=== PATIENT | female | born 1965 | race Caucasian/White ===

== ENCOUNTER 2019-10-21 07:24 | Day surgery (SDC) | payer BC ==
[~2019-10-21 07:24] MED LIST: Lactated Ringers 1,000 ML IV SCH; Sodium Chloride 0.9% 10 ML Syringe FLUSH PRN
[2019-10-21] MEDS ORDERED: Propofol 200 MG/20 ML SDV ONE (08:30)
[2019-10-21] MEDS ORDERED: fentaNYL 100 MCG/2 ML SDV ONE (08:30)
== END 2019-10-21 10:40 | disposition home or self-care (01) ==
LOC: VM.SDS 07:24
PROVIDERS: ATTEND Surgery
DX: Z12.11 Encounter for screening for malignant neoplasm of colon (principal); D12.3 Benign neoplasm of transverse colon; D12.5 Benign neoplasm of sigmoid colon; K62.1 Rectal polyp; K64.8 Other hemorrhoids; I10 Essential (primary) hypertension; K21.0 Gastro-esophageal reflux disease with esophagitis; E78.49 Other hyperlipidemia; F41.9 Anxiety disorder, unspecified; F17.210 Nicotine dependence, cigarettes, uncomplicated; Z79.82 Long term (current) use of aspirin; Z79.899 Other long term (current) drug therapy; Z88.5 Allergy status to narcotic agent; Z88.8 Allergy status to other drugs, medicaments and biological substances; Z86.010 Personal history of colon polyps; Z80.0 Family history of malignant neoplasm of digestive organs
CPT/HCPCS: J2704; J3010; J7120

== ENCOUNTER 2020-04-13 09:40 | Emergency (ER) | payer BC ==
[2020-04-13] MEDS ORDERED: Sodium Chloride 0.9% 10 ML Syringe FLUSH PRN (09:58)
--- NOTE | 2020-04-13 10:06 | EDM.PDOC ---
ED HPI GENERAL MEDICAL PROBLEM - General Chief Complaint: Headache Stated Complaint: ER Time Seen by Provider: 04/13/20 09:50 Source of Information: Reports: Patient History Limitations: Reports: No Limitations - History of Present Illness INITIAL COMMENTS - FREE TEXT/NARRATIVE: Patient comes emergency department today from the clinic for further evaluation of a rather sudden abrupt thunderclap headache that is worst ever headache and not a normal migraine for her that started at approximately 0800 when she got to work. Feels pounding and pressure behind bilateral eyes. She complains of photophobia and phonophobia. Nausea without vomiting. No recent falls head trauma. No visual disturbances. She does complain of feeling lightheaded. Vertigo. She denies any change in her mentation no confusion. No difficulty with word finding or speech. She does complain of some swelling to her left arm for which she had to take her watch off of for and leg, as well as a "funny sensation" to her left arm. She has had no chest pain or palpitations. No weakness syncope. No abdominal pain. She does complain of nausea without vomiting. She is quite anxious and concerned as this is very different from her typical migraines. She denies any fever or chills. No abdominal pain. No hematuria dysuria or urinary frequency. 28 pack year history of smoking not currently smoking. History of HTN high cholesterol. - Related Data Allergies Allergy/AdvReac Type Severity Reaction Status Date / Time hydrocodone Allergy Anxiety Verified 10/21/19 07:17 varenicline [From Chantix] Allergy Hives Verified 10/21/19 07:17 Home Meds: Home Meds Albuterol Sulfate [Albuterol Sulfate Hfa] 2 puff Q4H PRN 10/21/19 [History] Losartan [Cozaar] 12.5 mg PO DAILY 10/21/19 [History] Simvastatin [Zocor] 40 mg PO BEDTIME 10/21/19 [History] Venlafaxine [Effexor] 25 mg PO DAILY 10/21/19 [History] Past Medical History HEENT History: Reports: Allergic Rhinitis Cardiovascular History: Reports: High Cholesterol, Hypertension Gastrointestinal History: Reports: Colon Polyp, GERD Psychiatric History: Reports: Anxiety - Past Surgical History HEENT Surgical History: Reports: Other (See Below) Other HEENT Surgeries/Procedures: dental surgery GI Surgical History: Reports: Colonoscopy, EGD Female Surgical History: Reports: Hysterectomy, Other (See Below) Other Female Surgeries/Procedures: bladder and rectum [facility] Social & Family History - Tobacco Use Smoking Status *Q: Former Smoker (1 ppd 28 yr history.) ED ROS GENERAL - Review of Systems Review Of Systems: Comprehensive ROS is negative, except as noted in HPI. - Physical Exam Exam: See Below Exam Limited By: No Limitations General Appearance: Alert, WD/WN, No Apparent Distress, Mild Distress Eye Exam: Bilateral Eye: EOMI, PERRL Ears: Normal External Exam, Normal TMs Nose: Normal Inspection, Normal Mucosa Throat/Mouth: Normal Inspection, Normal Lips, Normal Teeth, Normal Gums, Normal Oropharynx, Normal Voice, No Airway Compromise Head Exam: Atraumatic, Normocephalic Neck: Normal Inspection, Supple, Non-Tender, Full Range of Motion Respiratory/Chest: No Respiratory Distress, Lungs Clear, Normal Breath Sounds, No Accessory Muscle Use, Chest Non-Tender Cardiovascular: Normal Peripheral Pulses, Regular Rate, Rhythm, No Edema, No Murmur GI/Abdominal: Normal Bowel Sounds, Soft, Non-Tender (Female) Exam: Deferred Rectal (Female) Exam: Deferred Neuro Exam (Abbreviated): Alert, Oriented, CN II-XII Intact, Normal Cognition, Normal Gait, Normal Reflexes, No Motor/Sensory Deficits, Other (NIH of 2, Slight pronator drift of left arm and drift of left leg almost falls to the bed. No ataxia of upper or lower extremities. Speech is clear and articulate. No difficulty with word findings. ) DTR: 2+: Bicep (R), Bicep (L), Patella (R), Patella (L), Achilles (R), Achilles (L) Back Exam: Normal Inspection, Full Range of Motion Extremities: Normal Inspection, Normal Range of Motion, Non-Tender, Normal Capillary Refill, Pedal Edema (Edema 1+ to the left lower extremity only no calf tenderness. ) Psychiatric: Normal Affect, Normal Mood Skin Exam: Warm, Dry, Intact, Normal Color, No Rash EKG INTERPRETATION EKG Date: 04/13/20 Time: 10:21 Rhythm: NSR Rate (Beats/Min): 73 Hasty: Normal P-Wave: Present QRS: Normal ST-T: Normal QT: Normal Course - Orders/Labs/Meds Orders: Active Orders 24 hr Category Date Time Status EKG Documentation Completion [RC] STAT Care 04/13/20 09:58 Active Peripheral IV Insertion Adult [OM.PC] Stat Oth 04/13/20 09:58 Ordered Labs: Laboratory Tests 04/13/20 04/13/20 04/13/20 Range/Units 10:04 10:04 10:04 WBC 7.6 (4.0-10.0) x10^3/uL RBC 4.83 (4.00-5.50) x10^6/uL Hgb 13.9 (12.0-16.0) g/dL Hct 41.5 (33.0-47.0) % MCV 85.9 (78.0-93.0) fL MCH 28.8 (26.0-32.0) pg MCHC 33.5 (32.0-36.0) g/dL RDW Coeff of Charmaine 12.7 (10.0-15.0) % Plt Count 203 (130-400) x10^3/uL Neut % (Auto) 57.8 (50.0-80.0) % Lymph % (Auto) 30.4 (25.0-50.0) % Levy % (Auto) 10.0 (2.0-11.0) % Eos % (Auto) 1.4 (0.0-4.0) % Baso % (Auto) 0.4 (0.2-1.2) % PT 9.8 (9.5-12.3) SEC INR 0.9 L (2.0-3.5) APTT 29.0 (25.6-32.8) SEC Sodium 142 (136-145) mmol/L Potassium 4.0 (3.5-5.1) mmol/L Chloride 104 (98-107) mmol/L Carbon Dioxide 28 (21-32) mmol/L Anion Gap 14.0 (10-20) mmol/L BUN 11 (7-18) mg/dL Creatinine 0.7 (0.55-1.02) mg/dL Est Cr Clr Drug Dosing TNP Estimated GFR (MDRD) > 60 Glucose 106 (74-106) mg/dL Calcium 9.1 (8.5-10.1) mg/dL Corrected Calcium 8.86 (8.5-10.1) mg/dL Total Bilirubin 0.2 (0.2-1.0) mg/dL AST 22 (15-37) U/L ALT 38 (14-59) U/L Alkaline Phosphatase 83 (46-116) U/L POC Troponin I (0.00-0.08) ng/mL NT-Pro-B Natriuret Pep 38 (<=125) pg/mL Total Protein 8.4 H (6.4-8.2) g/dL Albumin 4.3 (3.4-5.0) g/dL Globulin 4.1 Albumin/Globulin Ratio 1.05 /20/20 Range/Units 10:07 WBC (4.0-10.0) x10^3/uL RBC (4.00-5.50) x10^6/uL Hgb (12.0-16.0) g/dL Hct (33.0-47.0) % MCV (78.0-93.0) fL MCH (26.0-32.0) pg MCHC (32.0-36.0) g/dL RDW Coeff of Charmaine (10.0-15.0) % Plt Count (130-400) x10^3/uL Neut % (Auto) (50.0-80.0) % Lymph % (Auto) (25.0-50.0) % Levy % (Auto) (2.0-11.0) % Eos % (Auto) (0.0-4.0) % Baso % (Auto) (0.2-1.2) % PT (9.5-12.3) SEC INR (2.0-3.5) APTT (25.6-32.8) SEC Sodium (136-145) mmol/L Potassium (3.5-5.1) mmol/L Chloride (98-107) mmol/L Carbon Dioxide (21-32) mmol/L Anion Gap (10-20) mmol/L BUN (7-18) mg/dL Creatinine (0.55-1.02) mg/dL Est Cr Clr Drug Dosing Estimated GFR (MDRD) Glucose (74-106) mg/dL Calcium (8.5-10.1) mg/dL Corrected Calcium (8.5-10.1) mg/dL Total Bilirubin (0.2-1.0) mg/dL AST (15-37) U/L ALT (14-59) U/L Alkaline Phosphatase (46-116) U/L POC Troponin I 0.00 (0.00-0.08) ng/mL NT-Pro-B Natriuret Pep (<=125) pg/mL Total Protein (6.4-8.2) g/dL Albumin (3.4-5.0) g/dL Globulin Albumin/Globulin Ratio Meds: Medications Discontinued Medications Generic Name Dose Route Start Last Admin Trade Name Freq PRN Reason Stop Dose Admin Lactated Ringer's 1,000 mls @ 999 mls/hr 04/13/20 10:26 04/13/20 10:54 Ringers, Lactated IV 04/13/20 11:26 999 mls/hr ONETIME ONE Administration Iopamidol 100 ml 04/13/20 10:28 04/13/20 10:31 Isovue-300 (61%) IVPUSH 04/13/20 10:29 100 ml ONETIME ONE Administration Ondansetron HCl 4 mg 04/13/20 10:26 04/13/20 10:54 Zofran IV 04/13/20 10:27 4 mg ONETIME ONE Administration Sodium Chloride 10 ml 04/13/20 09:58 Saline Flush FLUSH ASDIRECTED PRN Keep Vein Open - Radiology Interpretation Free Text/Narrative:: CT of the head per stroke code per radiology is negative for acute intracranial findings. CTA head and neck per radiology is no acute findings. - Re-Assessments/Exams Free Text/Narrative Re-Assessment/Exam: 04/13/20 0955 aprox With the identified left arm and leg drift headache dizziness and hypertension A stroke code was activated. Patient was given Zofran 4 mg IV push with improvement of her nausea. To the CT of the head with normal findings were received from the radiology group. I rapidly called and talked with Dr. Ibarra the general neurologist staff electronic warfare officer, HPI ER course findings and concerns especially of the isolated left arm and leg drift towards the bed laid to him. There is no evidence of subarachnoid hemorrhage which initially was my concern with a thunderclap headache presentation. The neurologist had the CT as well as the CTA available for review as I spoke with him on the phone. He feels that this could be a life altering deficits and therefore his recommendations for TPA and transfer to the stroke center were advised. Spoke with the patient at length about the risk and the benefits of TPA administration in the presence of concerns for a stroke. We reviewed the contraindications and there were not any identified. Patient gave verbal and written consent for the administration of the TPA. Patient was given the bolus in the infusion per protocol. The patient was rapidly prepared for transport to the stroke center at [facility]. Her NIH on discharge/transfer continued to be a 2 with the weakness of the left arm and leg. 04/13/20 Departure - Departure Time of Disposition: 11:30 Disposition: DC/Tfer to Acute Hospital 02 Clinical Impression: CVA (cerebral vascular accident) Qualifiers: CVA mechanism: unspecified Qualified Code(s): I63.9 - Cerebral infarction, unspecified - Discharge Information Referrals: Margaret Brown MD [Primary Care Provider] - Forms: ED Department Discharge, Interfacility Transfer EMTALA Sepsis Event Note - Focused Exam Date Exam was Performed: 04/13/20 Time Exam was Performed: 15:54 - My Orders Last 24 Hours: My Active Orders 04/13/20 09:58 EKG Documentation Completion [RC] STAT Peripheral IV Insertion Adult [OM.PC] Stat - Assessment/Plan Last 24 Hours: My Active Orders 04/13/20 09:58 EKG Documentation Completion [RC] STAT Peripheral IV Insertion Adult [OM.PC] Stat Assessment:: Suspected CVA with left arm and leg weakness. TPA administration. Plan: Transfer to [facility] for further evaluation management and care at the stroke center.
[2020-04-13] MEDS: Iopamidol 612 MG/ML 100 ML Bottle IVPUSH ONE (10:31)
[2020-04-13 10:39] LABS: CHLORIDE,CL 104 mmol/L (98-107); SODIUM,NA 142 mmol/L (136-145)
--- NOTE | 2020-04-13 10:53 | CT ---
[id number] CT/CT Head Stroke Protocol EXAM: NONCONTRAST HEAD CT INDICATION: Left-sided weakness and sudden onset of worst headache. COMPARISON: None. DISCUSSION: The ventricles and sulci are normal in size and configuration. The ruiz and white matter are normal in attenuation. No mass effect or midline shift. No acute hemorrhage or extra-axial fluid collection. No acute territorial infarct is identified. A limited look at the orbits and paranasal sinuses is unremarkable. IMPRESSION: 1. Negative exam. Earle Ceron MD 04/13/20 [id number] Thank you for allowing us to participate in the care of your patient.
[2020-04-13] MEDS: Ondansetron 4 MG/2 ML SDV IV ONE (10:54)
[2020-04-13] MEDS: Lactated Ringers 1,000 ML IV ONE (10:54)
--- NOTE | 2020-04-13 11:02 | CT ---
[id number] CT/CTA Head Neck EXAM: CT angiogram head and neck INDICATION: THUNDER CLAP HEADACHE, LEFT-SIDED EXTREMITY COMPARISON: None. DISCUSSION: Aortic arch: Scattered atherosclerotic plaque. There is apparent soft plaque along a long segment of the left subclavian artery without significant associated stenosis. Right carotid artery: Normal in caliber. No significant stenosis or other abnormality. Left carotid artery: Normal in caliber. No significant stenosis or other abnormality. Right vertebral artery: Normal in caliber. No significant stenosis or other abnormality. Left vertebral artery: Normal in caliber. No significant stenosis or other abnormality. Basilar artery: Normal in caliber. No significant stenosis or other abnormality. [place] of [place]: Artifact mildly limits assessment, but no vessel cut off, aneurysm or other acute findings. Dural sinuses, jugular veins and cerebral veins: Limited evaluation of the cerebral veins, dural sinuses and jugular veins is unremarkable. Brain parenchyma: Unremarkable. The neck soft tissues: Unremarkable. Osseous structures: Mild degenerative disc disease in the cervical spine. The osseous structures are otherwise unremarkable. IMPRESSION: 1. No acute findings. Earle Ceron MD 04/13/20 [id number] Thank you for allowing us to participate in the care of your patient.
== END 2020-04-13 11:55 | disposition short-term general hospital (02) ==
LOC: VM.ED 09:40
DX: I63.9 Cerebral infarction, unspecified (principal); E78.00 Pure hypercholesterolemia, unspecified; I10 Essential (primary) hypertension; F41.9 Anxiety disorder, unspecified; Z79.899 Other long term (current) drug therapy; Z88.5 Allergy status to narcotic agent; Z88.8 Allergy status to other drugs, medicaments and biological substances
CPT/HCPCS: 70450; 70496; 70498; 80053; 83880; 84484; 85025; 85610; 85730; 93005; 96361; 96374; 99285-25; J2405; J7120; Q9967

== ENCOUNTER 2023-10-25 07:48 | Day surgery (SDC) | payer BC ==
[~2023-10-25 07:48] MED LIST changes: -Sodium Chloride 0.9% 10 ML Syringe FLUSH PRN
[2023-10-25] MEDS ORDERED: fentaNYL 100 MCG/2 ML SDV ONE (09:23)
[2023-10-25] MEDS ORDERED: Propofol 200 MG/20 ML SDV ONE (09:23)
== END 2023-10-25 11:10 | disposition home or self-care (01) ==
LOC: VM.SDS 07:48
PROVIDERS: ATTEND Student in an Organized Health Care Education/Training Program
DX: D12.2 Benign neoplasm of ascending colon (principal); D12.0 Benign neoplasm of cecum; E78.5 Hyperlipidemia, unspecified; I10 Essential (primary) hypertension; K21.9 Gastro-esophageal reflux disease without esophagitis; F41.9 Anxiety disorder, unspecified; I16.1 Hypertensive emergency; Z79.82 Long term (current) use of aspirin; Z79.899 Other long term (current) drug therapy; Z86.16 Personal history of COVID-19; Z98.890 Other specified postprocedural states; Z88.5 Allergy status to narcotic agent; Z88.8 Allergy status to other drugs, medicaments and biological substances
CPT/HCPCS: 00811; J2704; J3010; J7120